=== PATIENT | female | born 1965 | race Caucasian/White ===

== ENCOUNTER 2019-02-08 07:50 | Outpatient (CLI) | payer BC ==
[2019-02-08 17:15] LABS: #Basophils 0.2 thou/uL (0.0-0.2); #Eosinphils 0.3 thou/uL (0.0-0.7); #Lymphocytes 4.3 thou/uL (1.20-3.40); #Monocytes 0.8 thou/uL (0.11-0.59); #Neutrophils 5.6 thou/uL (1.40-6.50); %Basophils 1.6 % (0.0-1.0); %Lymphocytes 38.4 % (21.0-51.0); %Monocytes 6.7 % (0.0-10.0); %Neutrophils 50.3 % (42.0-75.0); Hemoglobin 13.5 g/dL (12.0-16.0); Mean Corpuscular HGB CONC 34.5 g/dL (32.0-36.0); Mean Corpuscular Hemoglobin 29.5 pg (27.0-31.0); Mean Corpuscular Volume 85.4 fL (78.0-98.0); Mean Platelet Volume 8.7 fL (7.4-10.4); Platelet Count 297 thou/uL (130-400); RBC Distribution Width 11.9 % (11.5-14.5); Red Blood Cell (RBC) Count 4.57 mill/uL (4.20-5.40); White Blood Cell (WBC) Count 11.1 thou/uL (4.8-10.8)
[2019-02-08 17:47] LABS: Anion Gap 16 mmol/L (10-20); BUN (Urea Nitrogen) 18 mg/dL (9.8-20.1); Calc. Creatinine Clearance 0 mL/min (70-130); Calcium 10.1 mg/dL (7.8-10.44); Carbon Dioxide 22 mmol/L (22-29); Chloride 102 mmol/L (98-107); Estimated GFR-MDRD 72; Glucose 166 mg/dL (70-105); Potassium 3.5 mmol/L (3.5-5.1); Sodium 136 mmol/L (136-145)
== END 2019-02-08 07:51 | disposition home or self-care (01) ==
LOC: LABBT 07:50
PROVIDERS: ATTEND Orthopaedic Surgery Hand Surgery
DX: Z01.812 Encounter for preprocedural laboratory examination (principal); M25.832 Other specified joint disorders, left wrist; S69.82XA Other specified injuries of left wrist, hand and finger(s), initial encounter; M77.9 Enthesopathy, unspecified
CPT/HCPCS: 80048; 85025

== ENCOUNTER 2019-02-12 10:39 | Day surgery (SDC) | payer BC ==
[2019-02-08 16:10] VITALS: BMI 29.8
[~2019-02-12 10:39] MED LIST: Bupivacaine HCl 0.5%/Epinephrine 1:200,000/PF 30 ml Vial ONE; Dexamethasone 20 MG/5 ML VIAL ONE; Lidocaine 1% PF 5 ML VIAL ONE; Ondansetron PF 4 MG/2 ML Vial ONE; PROPOFOL 200 MG/20 ML VIAL ONE
[2019-02-12] MEDS ORDERED: Clindamycin/D5W 600 mg/50 ml Premix Bag ONE (12:39)
[2019-02-12] MEDS ORDERED: Fentanyl 100 MCG/2 ML VIAL ONE (13:38)
[2019-02-12] MEDS ORDERED: MORPHINE 5 MG/10 ML PF VIAL ONE (13:43)
[2019-02-12] MEDS ORDERED: Bacitracin Zinc Ointment 30 gm TUBE ONE (13:44)
[2019-02-12] MEDS ORDERED: EPINEPHrine 1 MG/ML AMP ONE (13:44)
[2019-02-12] MEDS ORDERED: Sodium Chloride 0.9% 10 ML ONE (13:44)
[2019-02-12] MEDS ORDERED: traMADol HCl 50 MG TAB PO PRN ×2 (14:39)
[2019-02-12] MEDS ORDERED: Ondansetron PF 4 MG/2 ML Vial IVP PRN (14:39)
[2019-02-12] MEDS ORDERED: HYDROcodone/Acetaminophen 10/325 mg Tablet PO PRN ×2 (14:39)
[2019-02-12] MEDS ORDERED: Zolpidem Tartrate 5 MG TAB PO PRN (14:39)
[2019-02-12] MEDS ORDERED: Ropivacaine 0.2% 550 ML 550 ML NERVE BLCK SCH (14:39)
[2019-02-12] MEDS ORDERED: Promethazine HCl 25 MG/ML VIAL IM PRN (14:39)
[2019-02-12] MEDS ORDERED: Acetaminophen 325 MG TAB PO PRN (14:40)
[2019-02-12] MEDS ORDERED: Fentanyl 100 MCG/2 ML VIAL SLOW IVP PRN (14:40)
[2019-02-12] MEDS ORDERED: Ketorolac Tromethamine 30 MG/ML VIAL ONE (18:57)
[2019-02-12] MEDS ORDERED: traMADol HCl 50 MG TAB ONE (19:11)
--- NOTE | 2019-02-12 20:19 | RAD ---
LEFT WRIST TWO VIEWS: 02/12/19 HISTORY: Intraoperative films. These films show plate and screw placement across the ulnar shaft. IMPRESSION: Open reduction internal fixation of the mid shaft of the ulna with plate and screws. POS: MICHAEL
--- NOTE | 2019-02-13 01:44 | OP ---
DATE OF PROCEDURE: 02/12/2019 PREOPERATIVE DIAGNOSES: 1. Triangular fibrocartilage tear, finding of a complex, almost L-shaped tear with a radial side 8-9 mm off the radius and a central dorsal peripheral tear approximately 5-6 mm. 2. Evidence of ulnocarpal impingement radiographically, MRI and definitely clinically where there was chondral lesions without instability and without lunotriquetral ligament tear involving a large part of the ulna, one third of the lunate. 3. Extensor carpi ulnaris marked tenosynovitis without subluxation. 4. 2 mm ulnar positive wrist with the findings listed above. POSTOPERATIVE DIAGNOSES: 1. Triangular fibrocartilage tear, finding of a complex, almost L-shaped tear with a radial side 8-9 mm off the radius and a central dorsal peripheral tear approximately 5-6 mm. 2. Evidence of ulnocarpal impingement radiographically, MRI and definitely clinically where there was chondral lesions without instability and without lunotriquetral ligament tear involving a large part of the ulna, one third of the lunate. 3. Extensor carpi ulnaris marked tenosynovitis without subluxation. 4. 2 mm ulnar positive wrist with the findings listed above. PROCEDURES PERFORMED: 1. Arthroscopic synovectomy of the wrist. 2. Arthroscopic chondroplasty of the wrist with debridement. 3. Open triangular fibrocartilage repair as described above. 4. Open extensor carpi ulnaris ( ) tenosynovectomy. 5. Open ulnar shortening and RAYHACK osteotomy. 6. C-arm supervision and use intraoperatively. 7. Application of long-arm splint. SPECIMEN SENT: Tenosynovium from extensor carpi ulnaris tenosynovectomy. BLOOD LOSS: 20 cc. TOURNIQUET TIME: 91 minutes. ANESTHESIOLOGIST: Dr. Espinosa. INDICATIONS: The patient had ulnar-side wrist pain, failed conservative treatment, had some response to injection along the ECU sheath but when her MRI showed findings of triangular fibrocartilage tear and probable defect large enough to require intervention, operative intervention was indicated. DESCRIPTION OF PROCEDURE: After successful general endotracheal anesthesia, limb was prepped and draped. The limb was then placed in in-line traction with sterile technique, the standard 3, 4, 6U, and 6R portals were established and a panoramic view of the wrist revealed marked synovitis. We then had to manipulate the wrist using the scope all the way between the 6U and the working 3, 4 portals, we were able to visualize and then perform a complete synovectomy. 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 We debrided this until we had no cartilage that was free floating; however, there was some undermining of a small amount deep volarly. We then visualized the tear, central tear was debrided, turning it to about a 3 mm wide tear and then we looked dorsally and saw marked synovitis. We resected this; it was suspicious for a very peripheral, but dorsal tear. For this reason, we exsanguinated the limb, outlined an incision for both the RAYHACK osteotomy, shortening, as well as to approach the ulnar wrist. We did this in a zigzag fashion incorporating the 6R portal and was able to vera the bed of the extensor digiti minimi. We moved it back radially, entered the joint, here we visualized the tear, pattern as described (postoperative findings) above. We then inspected the cartilage underneath the ulna and of the lunate, there was no any further loose cartilage, although there was some denuded and small amount of exposed bone. We also found no tear in the lunotriquetral ligament and no instability. For this reason, we just repaired the dorsal central peripheral tear with 4 [id number] Prolene. We then closed the capsule with a 2-0 Vicryl interrupted mattress [id number], closed the retinaculum with interrupted [id number] 4-0 Monocryl undyed, and left the skin for later. With the tourniquet still inflated from the previous procedure, we made a zigzag incision as long as the plate itself, carried through skin and subcutaneous tissue on the ulnar direct laterally, and released the fascia. We then dissected the periosteum free until we could get more ulna and here we placed the cut guide. It was placed in appropriate orientation, we then did drill, measured tap screw technique to secure with two 7 screws, then through the cut guide, we made a 2 mm wafer and removed it for shortening. Then, we replaced the plate itself in appropriate orientation, placed the screws to include 2 screws of #3 and #4 that would be 3 mm long in so that they could help compress without cut out and once we had done this, we placed the compression device and completely compressed it without complication. We then placed the lag screw and then followed by 2 distal screws, removed the coaptation device, we placed the screws that were too long (#3 and #4 regional nomenclature system) by shorter screws and x-ray confirmed the anatomic visualization we saw. There was no complication. We released the tourniquet. We closed the fascia on the ulnar incision and had to exchange 1 screw because of length and now there was excellent pattern. The exchange was made, hemostasis was excellent, and we finished the fascial closure with the 0 Vicryl undyed, buried, finished subcutaneous closure at all the incisions with a running 4-0 Monocryl, and since the epidermis was so aligned, we then used Steri-Strips and benzoin. The patient then left the operating room in a bulky dressing after we applied a long-arm splint. No evidence of anesthetic or operative complication. Job ID: [id number]
== END 2019-02-12 20:35 | disposition home or self-care (01) ==
LOC: SDC 10:39
PROVIDERS: ATTEND Orthopaedic Surgery Hand Surgery
PROC: 0MB64ZZ Excision of Left Wrist Bursa and Ligament, Percutaneous Endoscopic Approach (ICD-10-PCS; principal; 2019-02-12)
PROC: 3E0T3BZ Introduction of Anesthetic Agent into Peripheral Nerves and Plexi, Percutaneous Approach (ICD-10-PCS; principal; 2019-02-12)
PROC: 0PSL04Z Reposition Left Ulna with Internal Fixation Device, Open Approach (ICD-10-PCS; principal; 2019-02-12)
PROC: 0LB60ZZ Excision of Left Lower Arm and Wrist Tendon, Open Approach (ICD-10-PCS; principal; 2019-02-12)
PROC: 0RBP4ZZ Excision of Left Wrist Joint, Percutaneous Endoscopic Approach (ICD-10-PCS; principal; 2019-02-12)
DX: S63.592A Other specified sprain of left wrist, initial encounter (principal); M25.832 Other specified joint disorders, left wrist; M77.8 Other enthesopathies, not elsewhere classified; G89.18 Other acute postprocedural pain; Z79.84 Long term (current) use of oral hypoglycemic drugs; Z79.899 Other long term (current) drug therapy; Z88.0 Allergy status to penicillin; Z88.2 Allergy status to sulfonamides; Z91.048 Other nonmedicinal substance allergy status; X58.XXXA Exposure to other specified factors, initial encounter
CPT/HCPCS: 76000; 88304; A4306; C1713; J0171; J0670; J1100; J1885; J2001; J2274; J2405; J2704; J2795; J3010; J3490

== ENCOUNTER 2022-01-14 11:05 | Emergency (ER) | payer BC | END 2022-01-14 13:55 | disposition home or self-care (01) | LOC: ERS 11:05 | DX: M79.602 Pain in left arm (principal); E11.9 Type 2 diabetes mellitus without complications ==